=== PATIENT | female | born 1985 | race Caucasian/White ===

== ENCOUNTER 2020-12-22 20:33 | Emergency (ER) | payer SELFPAY ==
[2020-12-22] MEDS ORDERED: Lorazepam 2 MG/ML VIAL ONE (20:58)
== END 2020-12-22 21:33 | disposition home or self-care (01) ==
LOC: CSHERS 20:33
DX: J30.2 Other seasonal allergic rhinitis (principal); F41.1 Generalized anxiety disorder; F17.210 Nicotine dependence, cigarettes, uncomplicated
CPT/HCPCS: 93005; 96372; J2060

== ENCOUNTER 2021-12-29 11:12 | Emergency (ER) | payer OTHER, SELFPAY ==
[2021-12-29 12:04] LABS: #Eosinphils 0.2 10x3/uL (0.0-0.5); #Monocytes 0.5 10x3/uL (0.0-1.1); #Neutrophils 5.4 10x3/uL (1.5-8.4); %Basophils 0.5 % (0.0-2.0); %Eosinophils 2.4 % (0.0-6.0); %Monocytes 6.7 % (0.0-10.0); %Neutrophils 71.1 % (40.0-75.0); Hemoglobin 12.4 g/dL (12.0-15.5); Mean Corpuscular HGB CONC 34.7 g/dL (32.0-36.0); Mean Corpuscular Hemoglobin 30.2 pg (27.0-33.0); Mean Corpuscular Volume 86.9 fl (81.6-98.3); Mean Platelet Volume 10.1 fl (7.4-10.4); Platelet Count 289 10x3/uL (150-450); RBC Distribution Width 13.5 % (11.5-14.5); Red Blood Cell (RBC) Count 4.11 10x6/uL (3.90-5.03); White Blood Cell (WBC) Count 7.6 10x3/uL (3.5-10.5)
[2021-12-29 12:10] LABS: BHCG - Serum POSITIVE (NEGATIVE); Pregs Control Background? CLEAR/WHITE (CLR/WHITE); Pregs Control Bar Appear? YES (CONTROL BAR)
[2021-12-29 12:22] LABS: ALT (SGPT) Less than 6 U/L (8-55); AST (SGOT) 16 U/L (5-34); Albumin 4.2 g/dL (3.5-5.0); Alkaline Phosphatase 48 U/L (40-110); Anion Gap 14 mmol/L (10-20); BUN (Urea Nitrogen) 14 mg/dL (7.0-18.7); Bilirubin, Total 1.6 mg/dL (0.2-1.2); Calc. Creatinine Clearance 0 mL/min (70-130); Calcium 9.2 mg/dL (7.8-10.44); Carbon Dioxide 22 mmol/L (22-29); Chloride 108 mmol/L (98-107); Globulin 2.5 g/dL (2.4-3.5); Glucose 102 mg/dL (70-105); Potassium 3.9 mmol/L (3.5-5.1); Protein, Total 6.7 g/dL (6.0-8.3); Sodium 140 mmol/L (136-145)
[2021-12-29] MEDS ORDERED: Ondansetron PF 4 MG/2 ML Vial ONE (13:42)
[2021-12-29] MEDS ORDERED: Fentanyl 100 MCG/2 ML VIAL ONE ×3 (14:34→16:36)
[2021-12-29 15:05] LABS: Hemoglobin 9.2 g/dL (12.0-15.5); Platelet Count 189 10x3/uL (150-450)
[2021-12-29 15:29] LABS: SARS-CoV-2 NAA Rapid Test Not Detected (NotDetected)
[2021-12-29] MEDS ORDERED: Ondansetron PF 4 MG/2 ML Vial IVP PRN (16:23)
[2021-12-29] MEDS ORDERED: Promethazine HCl 25 MG/ML VIAL IM PRN (16:27)
[2021-12-29] MEDS ORDERED: Promethazine HCl 25 MG/ML VIAL ONE (16:29)
[2021-12-29] MEDS ORDERED: ceFAZolin 2 GM/Dextrose 50 ML 2 GM in Premix Bag 1 BAG IVPB SCH (16:30)
[2021-12-29] MEDS ORDERED: ceFAZolin 2 GM/Dextrose 50 ML IVPB ONE (16:30)
[2021-12-29] MEDS ORDERED: Lactated Ringer's 1,000 ML IV SCH (16:30)
[2021-12-29] MEDS ORDERED: Tranexamic Acid 1,000 MG/10 ML VIAL ONE (16:38)
[2021-12-29] MEDS ORDERED: EPINEPHrine 1 MG/ML AMP ONE (17:00)
[2021-12-29] MEDS ORDERED: Oxytocin 10 UNITS/ML VIAL ONE (17:11)
[2021-12-29] MEDS ORDERED: Dexamethasone 20 MG/5 ML VIAL ONE (17:14)
[2021-12-29] MEDS ORDERED: Bupivacaine PF 0.5% 30 ML VIAL ONE (17:14)
[2021-12-29] MEDS ORDERED: traMADol HCl 50 MG TAB PO SCH (17:45)
[2021-12-29] MEDS ORDERED: traMADol HCl 50 MG TAB ONE (18:17)
== END 2021-12-29 16:51 | disposition admitted as inpatient to this hospital (09) ==
LOC: CSHERS 11:12
DX: O03.9 Complete or unspecified spontaneous abortion without complication (principal); Z20.822 Contact with and (suspected) exposure to COVID-19; F17.210 Nicotine dependence, cigarettes, uncomplicated
CPT/HCPCS: 36415; 76856; 80053; 84702; 84703; 85025; 86900; 86901; 88305; 90384; 93976; 96361; 96365; 96366; 96372; 96375; 96376; J0171; J0690; J1100; J2405; J2550; J2590; J3010; S0020; U0002

== ENCOUNTER 2022-01-01 10:45 | Emergency (ER) | payer OTHER, SELFPAY ==
[~2022-01-01 10:45] MED LIST: Iopamidol 370 76% 100 ML VIAL ONE
[2022-01-01] MEDS ORDERED: Metoclopramide HCl 10 MG/2 ML VIAL ONE (11:39)
[2022-01-01] MEDS ORDERED: Magnesium 2 GM/50 ML BAG (IN WATER) ONE (11:39)
[2022-01-01] MEDS ORDERED: diphenhydrAMINE 50 MG/ML VIAL ONE (11:39)
[2022-01-01 12:43] LABS: Platelet Count 258 10x3/uL (150-450)
[2022-01-01 12:46] LABS: #Eosinphils 0.2 10x3/uL (0.0-0.5); #Monocytes 0.5 10x3/uL (0.0-1.1); #Neutrophils 3.5 10x3/uL (1.5-8.4); %Basophils 0.5 % (0.0-2.0); %Eosinophils 2.7 % (0.0-6.0); %Lymphocytes 31.4 % (18.0-47.0); %Monocytes 7.6 % (0.0-10.0); %Neutrophils 57.3 % (40.0-75.0); Hemoglobin 6.7 g/dL (12.0-15.5); Mean Corpuscular HGB CONC 33.8 g/dL (32.0-36.0); Mean Corpuscular Hemoglobin 30.7 pg (27.0-33.0); Mean Corpuscular Volume 90.8 fl (81.6-98.3); RBC Distribution Width 13.9 % (11.5-14.5); Red Blood Cell (RBC) Count 2.18 10x6/uL (3.90-5.03)
[2022-01-01 12:56] LABS: ALT (SGPT) Less than 6 U/L (8-55); AST (SGOT) 19 U/L (5-34); Alkaline Phosphatase 38 U/L (40-110); Anion Gap 14 mmol/L (10-20); BUN (Urea Nitrogen) 10 mg/dL (7.0-18.7); Bilirubin, Total 0.7 mg/dL (0.2-1.2); Calc. Creatinine Clearance 0 mL/min (70-130); Calcium 8.5 mg/dL (7.8-10.44); Carbon Dioxide 20 mmol/L (22-29); Chloride 110 mmol/L (98-107); Globulin 2.1 g/dL (2.4-3.5); Glucose 81 mg/dL (70-105); Protein, Total 6.1 g/dL (6.0-8.3); Sodium 140 mmol/L (136-145)
[2022-01-01] MEDS ORDERED: Acetaminophen 500 MG TAB ONE (14:02)
[2022-01-01] MEDS ORDERED: Ketorolac Tromethamine 30 MG/ML VIAL ONE (15:14)
== END 2022-01-01 11:57 | disposition home or self-care (01) ==
LOC: CSHERS 10:45
DX: D64.9 Anemia, unspecified (principal); R06.00 Dyspnea, unspecified; R51.9 Headache, unspecified; F17.210 Nicotine dependence, cigarettes, uncomplicated
CPT/HCPCS: 36415; 36430; 70450; 71275; 80053; 83880; 84484; 85025; 86850; 86870; 86900; 86901; 93005; 96374; 96375; J1200; J1885; J2765; J3475; P9016; Q9967

== ENCOUNTER 2022-03-08 22:15 | Emergency (ER) | payer OTHER | END 2022-03-09 01:14 | disposition home or self-care (01) | LOC: CSHERS 22:15 | DX: O03.4 Incomplete spontaneous abortion without complication (principal); F17.210 Nicotine dependence, cigarettes, uncomplicated | CPT/HCPCS: 36415; 76856; 84702; 86900; 86901; 90384; 96372 ==

== ENCOUNTER 2022-04-25 18:21 | Emergency (ER) | payer OTHER ==
[2022-04-25 20:33] LABS: Hemoglobin 11.2 g/dL (12.0-15.5); Mean Corpuscular HGB CONC 31.9 g/dL (32.0-36.0); Mean Corpuscular Hemoglobin 25.1 pg (27.0-33.0); Mean Corpuscular Volume 78.7 fl (81.6-98.3); Mean Platelet Volume 9.9 fl (7.4-10.4); Platelet Count 258 10x3/uL (150-450); RBC Distribution Width 19.4 % (11.5-14.5); Red Blood Cell (RBC) Count 4.46 10x6/uL (3.90-5.03); White Blood Cell (WBC) Count 7.6 10x3/uL (3.5-10.5)
[2022-04-25 20:44] LABS: ALT (SGPT) 8 U/L (8-55); AST (SGOT) 13 U/L (5-34); Albumin 4.2 g/dL (3.5-5.0); Alkaline Phosphatase 49 U/L (40-110); Anion Gap 12 mmol/L (10-20); BUN (Urea Nitrogen) 13 mg/dL (7.0-18.7); Bilirubin, Total 0.4 mg/dL (0.2-1.2); Calc. Creatinine Clearance 0 mL/min (70-130); Carbon Dioxide 22 mmol/L (22-29); Chloride 107 mmol/L (98-107); Estimated GFR 110; Globulin 2.8 g/dL (2.4-3.5); Glucose 92 mg/dL (70-105); Potassium 3.8 mmol/L (3.5-5.1); Sodium 137 mmol/L (136-145)
[2022-04-25 20:52] LABS: MDiff Complete? YES
[2022-04-25 20:55] LABS: Band 2 % (5-11); Eosinophils 1 % (0-10); Lymphocytes 33 % (21-51); Monocytes 5 % (0-10); Neutrophil 56 % (42-75); Reactive Lymphocytes 3 % (0-10)
[2022-04-25 20:56] LABS: Ovalocytes SLIGHT = 2-5 cells (100X) (0-1/hpf); Platelet Morphology Comment Appears Adequate
[2022-04-25 22:09] LABS: Bilirubin Neg (Negative); Blood, Urine Negative (Negative); Clarity Clear (Clear); Glucose, Urine (Dipstick) Normal (Negative); Ketone, Urine Negative (Negative); Leukocyte Negative (Negative); Nitrite Negative (Negative); Protein, Urine (Dipstick) 15 mg/dl (Neg-Trace); Specific Gravity, Urine 1.025 (1.005-1.030); Urobilinogen Normal mg/dL (Less than 2)
== END 2022-04-25 22:48 | disposition home or self-care (01) ==
LOC: CSHERS 18:21
DX: O98.511 Other viral diseases complicating pregnancy, first trimester (principal); U07.1 COVID-19; O20.9 Hemorrhage in early pregnancy, unspecified; O99.331 Smoking (tobacco) complicating pregnancy, first trimester; F17.210 Nicotine dependence, cigarettes, uncomplicated; Z3A.01 Less than 8 weeks gestation of pregnancy
CPT/HCPCS: 76856; 80053; 81003; 84484; 84702; 85025; 86900; 86901; 93005; 93976

== ENCOUNTER 2022-11-08 20:05 | Day surgery (SDC) | payer OTHER ==
[2022-11-08 20:27] VITALS: BMI 36.6
[2022-11-08] MEDS ORDERED: hydrALAZINE 20 MG/ML VIAL SLOW IVP PRN (20:58)
== END 2022-11-08 23:15 | disposition home or self-care (01) ==
LOC: CSHLD/OP 20:05
PROVIDERS: ATTEND Family Medicine
DX: O36.8130 Decreased fetal movements, third trimester, not applicable or unspecified (principal); Z87.891 Personal history of nicotine dependence; O36.0190 Maternal care for anti-D [Rh] antibodies, unspecified trimester, not applicable or unspecified; Z67.91 Unspecified blood type, Rh negative; Z79.899 Other long term (current) drug therapy; O99.323 Drug use complicating pregnancy, third trimester; Z3A.36 36 weeks gestation of pregnancy
CPT/HCPCS: 76819; 87480; 87510; 87660; 99284

== ENCOUNTER 2022-11-12 09:39 | Day surgery (SDC) | payer OTHER ==
[2022-11-12] MEDS ORDERED: hydrALAZINE 20 MG/ML VIAL SLOW IVP PRN (10:22)
== END 2022-11-12 12:43 | disposition home or self-care (01) ==
LOC: CSHLD/OP 09:39
PROVIDERS: ATTEND Obstetrics & Gynecology
DX: O47.03 False labor before 37 completed weeks of gestation, third trimester (principal); O24.419 Gestational diabetes mellitus in pregnancy, unspecified control; O99.343 Other mental disorders complicating pregnancy, third trimester; F31.9 Bipolar disorder, unspecified; Z90.49 Acquired absence of other specified parts of digestive tract; Z90.721 Acquired absence of ovaries, unilateral; Z79.82 Long term (current) use of aspirin; Z79.899 Other long term (current) drug therapy; Z87.891 Personal history of nicotine dependence; Z3A.36 36 weeks gestation of pregnancy

== ENCOUNTER 2022-11-30 19:30 | Inpatient (IN) | payer OTHER ==
[2022-12-01] MEDS ORDERED: Ondansetron PF 4 MG/2 ML Vial IVP PRN ×2 (00:15→19:35)
[2022-12-01] MEDS ORDERED: hydrALAZINE 20 MG/ML VIAL SLOW IVP PRN (00:15)
[2022-12-01] MEDS ORDERED: NS w/ Oxytocin 30 units 500 ML IV SCH ×3 (00:15→13:00)
[2022-12-01] MEDS ORDERED: Lidocaine 1% (PF) 30 ML VIAL SC PRN (00:15)
[2022-12-01] MEDS ORDERED: Promethazine HCl 25 MG/ML VIAL IM PRN ×2 (00:15→19:35)
[2022-12-01] MEDS ORDERED: Methylergonovine 0.2 MG/ML VIAL IM PRN (00:16)
[2022-12-01] MEDS ORDERED: Misoprostol 200 MCG TAB PR PRN (00:16)
[2022-12-01] MEDS ORDERED: Diphenoxylate HCl/Atropine Tablet PO PRN (00:16)
[2022-12-01] MEDS ORDERED: Tranexamic Acid 1,000 MG/10 ML VIAL IVP PRN (00:16)
[2022-12-01] MEDS ORDERED: Carboprost 250 MCG/ML AMP IM PRN (00:16)
[2022-12-01] MEDS ORDERED: Lactated Ringer's 1,000 ML IV SCH (00:30)
[2022-12-01 01:40] LABS: Hemoglobin 11.8 g/dL (12.0-15.5); Mean Corpuscular HGB CONC 34.4 g/dL (32.0-36.0); Mean Corpuscular Hemoglobin 31.1 pg (27.0-33.0); Mean Corpuscular Volume 90.3 fl (81.6-98.3); Mean Platelet Volume 10.3 fl (7.4-10.4); Platelet Count 254 10x3/uL (150-450); RBC Distribution Width 13.2 % (11.5-14.5); White Blood Cell (WBC) Count 13.4 10x3/uL (3.5-10.5)
[2022-12-01] MEDS: Misoprostol 100 MCG TAB VAG SCH (01:46)
[2022-12-01 02:12] LABS: Syphilis Antibody Nonreactive (Nonreactive); Syphilis Antibody Index 0.07 S/CO (<1.00 Non-Reactive)
[2022-12-01 02:13] LABS: HBSAg Index 0.15 S/CO (0-0.99); Hep B Surf Ag - L&D Non-Reactive S/CO (NonReactive)
[2022-12-01] MEDS ORDERED: Famotidine 20 MG TAB PO SCH ×2 (02:15→09:00)
[2022-12-01 02:46] VITALS: BMI 37.3
[2022-12-01] MEDS ORDERED: fentaNYL 50 mcg/mL 1 mL Vial SLOW IVP SCH ×2 (15:00→17:30)
[2022-12-01 15:06] LABS: Amphetamine Not Detected (NotDetected); Barbiturates Screen Not Detected (NotDetected); Benzodiazepine Screen Not Detected (NotDetected); Cocaine Metabolite Screen Not Detected (NotDetected); Methadone Not Detected (NotDetected); Methamphetamine Not Detected (NotDetected); Opiate Screen Not Detected (NotDetected); Oxycodone Screen Not Detected (NotDetected); Phencyclidine (PCP) Not Detected (NotDetected); THC/Cannabinoid Screen Not Detected (NotDetected); Tricyclic Screen Not Detected (NotDetected)
[2022-12-01] MEDS ORDERED: Fentanyl 2 mcg/Bup 0.1% Cadd 100 ML ONE (18:49)
[2022-12-01] MEDS ORDERED: Naloxone HCl 0.4 mg/ml Vial IVP PRN ×2 (19:35)
[2022-12-01] MEDS ORDERED: Moisturizing Cream (Eucerin) 113 GM JAR TOP PRN (19:35)
[2022-12-01] MEDS ORDERED: diphenhydrAMINE 50 MG/ML VIAL IVP PRN (19:35)
[2022-12-01] MEDS ORDERED: ePHEDrine Sulfate 50 MG/10 ML VIAL SLOW IVP PRN (19:35)
[2022-12-01] MEDS ORDERED: Lactated Ringer's 500 ML IV PRN (19:35)
[2022-12-01] MEDS ORDERED: Acetaminophen 325 MG TAB PO PRN (19:35)
[2022-12-01] MEDS ORDERED: Communication Order-Pharmacy FS SCH (19:45)
[2022-12-01] MEDS ORDERED: Fentanyl 2 mcg/Bupivacaine 0.1% Cassette 100 ML EPIDURAL SCH (19:45)
[2022-12-02] MEDS ORDERED: NS w/ Oxytocin 30 units 500 ML IV SCH (01:12)
[2022-12-02] MEDS ORDERED: Misoprostol 200 MCG TAB VAG PRN (01:12)
[2022-12-02] MEDS ORDERED: Bisacodyl 10 MG SUPP PR PRN (01:12)
[2022-12-02] MEDS ORDERED: Preparation H Ointment 28 GM TUBE PR PRN (01:12)
[2022-12-02] MEDS ORDERED: Milk Of Magnesia 30 ML UDCUP PO PRN (01:12)
[2022-12-02] MEDS ORDERED: Benzocaine-Menthol 82.5 ML CAN TOP PRN (01:12)
[2022-12-02] MEDS ORDERED: diphenhydrAMINE 25 MG CAP PO PRN (01:12)
[2022-12-02] MEDS ORDERED: hydrALAZINE 20 MG/ML VIAL SLOW IVP PRN (01:12)
[2022-12-02] MEDS ORDERED: Methylergonovine 0.2 MG/ML VIAL IM PRN (01:12)
[2022-12-02] MEDS ORDERED: Boostrix 0.5 ML (Tdap) VIAL (>/=7 yrs of age) IM ONE (01:12)
[2022-12-02] MEDS ORDERED: Lanolin Ointment 7 GM TUBE TOP PRN (01:12)
[2022-12-02] MEDS: Misoprostol 100 MCG TAB VAG SCH (01:16)
[2022-12-02] MEDS: Ibuprofen 800 MG TAB PO SCH ×4 (02:01→22:21)
[2022-12-02] MEDS ORDERED: Ibuprofen 800 MG TAB PO SCH (06:00)
[2022-12-02] MEDS: Docusate 100 MG CAP PO SCH ×2 (09:45→22:21)
[2022-12-02] MEDS: Prenatal Vitamin 1 TAB PO SCH (09:45)
[2022-12-02] MEDS: Ferrous Sulfate 325 MG TAB PO SCH ×2 (09:49→16:51)
[2022-12-02] MEDS ORDERED: Bupivacaine HCl 0.5%/Epinephrine 1:200,000/PF 30 ml Vial ONE (18:21)
[2022-12-03] MEDS ORDERED: Simethicone Chewable 80 MG TAB PO PRN (01:22)
[2022-12-03] MEDS: Ibuprofen 800 MG TAB PO SCH ×2 (05:28→09:25)
[2022-12-03] MEDS: Ferrous Sulfate 325 MG TAB PO SCH (06:51)
[2022-12-03 08:10] VITALS: BP 89/55; TEMP 97.8
[2022-12-03] MEDS: Prenatal Vitamin 1 TAB PO SCH (09:25)
[2022-12-03] MEDS: Docusate 100 MG CAP PO SCH (09:25)
[2022-12-03 16:27] LABS: Hemoglobin A1c 4.8 % (4.0-6.0)
== END 2022-12-03 13:20 | disposition home or self-care (01) | DRG 807 ==
LOC: CSHLD 23:18 → CSHPP 12-02 01:00
PROVIDERS: ADMIT Obstetrics & Gynecology; ATTEND Obstetrics & Gynecology
PROC: 10E0XZZ Delivery of Products of Conception, External Approach (ICD-10-PCS; principal; 2022-12-01)
PROC: 0HQ9XZZ Repair Perineum Skin, External Approach (ICD-10-PCS; 2022-12-01)
PROC: 10907ZC Drainage of Amniotic Fluid, Therapeutic from Products of Conception, Via Natural or Artificial Opening (ICD-10-PCS; 2022-12-01)
PROC: 3E0DXGC Introduction of Other Therapeutic Substance into Mouth and Pharynx, External Approach (ICD-10-PCS; 2022-12-01)
PROC: 3E033VJ Introduction of Other Hormone into Peripheral Vein, Percutaneous Approach (ICD-10-PCS; 2022-12-01)
DX: O24.429 Gestational diabetes mellitus in childbirth, unspecified control (principal); Z37.0 Single live birth; O09.523 Supervision of elderly multigravida, third trimester; O99.334 Smoking (tobacco) complicating childbirth; F31.9 Bipolar disorder, unspecified; O99.344 Other mental disorders complicating childbirth; F17.200 Nicotine dependence, unspecified, uncomplicated; Z3A.39 39 weeks gestation of pregnancy; O70.0 First degree perineal laceration during delivery; Z79.82 Long term (current) use of aspirin; Z88.0 Allergy status to penicillin
CPT/HCPCS: 36416; 80306; 83036; 85027; 86780; 86850; 86870; 86900; 86901; 87340; J2405; J2590; J3010

== ENCOUNTER 2023-02-15 12:38 | Emergency (ER) | payer OTHER | END 2023-02-15 15:03 | disposition home or self-care (01) | LOC: CSHERS 12:38 | DX: J06.9 Acute upper respiratory infection, unspecified (principal); F17.210 Nicotine dependence, cigarettes, uncomplicated | CPT/HCPCS: 99283 ==